=== PATIENT | male | born 1975 | race Caucasian/White ===

== ENCOUNTER 2023-03-28 13:06 | Emergency (ER) | payer SELFPAY ==
[~2023-03-28] VITALS: Ht 175.3 cm; Wt 86.5 kg
[2023-03-28 13:12] VITALS: BP 116/70; TEMP 97.6; O2SAT 97
[2023-03-28 13:14] VITALS: PULSE 87
[2023-03-28] MEDS ORDERED: TETRACAINE 0.5% OPHTH DROPS 4ML BOTHEYE ONE (14:15)
[2023-03-28] MEDS ORDERED: FLUORESCEIN SODIUM 1MG/STRIP BOTHEYE ONE (14:15)
[2023-03-28] MEDS ORDERED: TETRACAINE 0.5% OPHTH DROPS 4ML BOTHEYE NR (14:15)
[2023-03-28] MEDS ORDERED: FLUORESCEIN SODIUM 1MG/STRIP BOTHEYE NR (14:15)
[2023-03-28] MEDS ORDERED: ERYT1OIN6 EACHEYE (17:31)
== END 2023-03-28 17:35 | disposition home or self-care (01) ==
LOC: ER 13:22
DX: S05.02XA Injury of conjunctiva and corneal abrasion without foreign body, left eye, initial encounter (principal); X58.XXXA Exposure to other specified factors, initial encounter; Y93.89 Activity, other specified; Y92.89 Other specified places as the place of occurrence of the external cause; Y99.8 Other external cause status
CPT/HCPCS: 70480; 99284